=== PATIENT | female | born 1990 | race Caucasian/White ===

== ENCOUNTER 2016-07-18 21:38 | Inpatient (IN) | payer MEDICAID ==
[~2016-07-18] VITALS: Ht 170.2 cm; Wt 107.9 kg
--- NOTE | ~2016-07-18 | ER ---
PATIENT'S NAME: GEOFF WARREN [facility] AGE: 25 Y [address] ROOM: [place] [address] LOCATION: GPCU ADMIT DATE: 07/18/2016 ER/Outpatient Report DISCHARGE DATE: FAMILY PHYSICIAN: Dhruv Shields MD ATTENDING PHYSICIAN: Dhruv Shields HISTORY OF PRESENT ILLNESS: Zunilda Warren is a 25-year-old female who was initially seen by FELIPA Rowe and I shortly thereafter assumed care. Please refer to Chaparro's dictation for history and initial physical exam findings. I did confirm the history with the patient. She started out with a sore throat yesterday and then today was ill with a temp of 104. She has a history of asthma and she has been more short of breath today and very diaphoretic. She used her albuterol nebulizer at home with no relief. She is brought in by ambulance from [place] with mutual aid with [facility]. She has been given a DuoNeb treatment en route. On arrival here, she is acutely short of breath, tachypneic, wheezes, diminished breath sounds, and was given [id number] albuterol treatments. The patient is extremely diaphoretic and answering history questions in only 1 or 2 word sentences. ALLERGIES: PENICILLIN AND IBUPROFEN. CURRENT MEDICATIONS: 1. Vicodin. 2. Ventolin. 3. Tylenol. 4. Pulmicort. MEDICAL PROBLEMS: Asthma, she has been hospitalized for her asthma before, but never intubated, and back pain. PRIOR SURGERIES: section, she is a G1, P1, her child is almost 1-year-old. SOCIAL HISTORY: The patient lives in [place]. Tobacco use, denies. Alcohol use, occasional. Drug use, denies. FAMILY HISTORY: No pertinent family history. REVIEW OF SYSTEMS: All systems reviewed and negative other than what is noted in the HPI. Her PATIENT'S NAME: GEOFF WARREN [facility] AGE: 25 Y [address] ROOM: [place] [address] LOCATION: GPCU ADMIT DATE: 07/18/2016 ER/Outpatient Report DISCHARGE DATE: FAMILY PHYSICIAN: Drhuv Shields MD ATTENDING PHYSICIAN: Shields,Dhruv A last menstrual period was 2 days ago. PHYSICAL EXAMINATION: VITAL SIGNS: Weight 105.3 kg. Blood pressure 109/64, pulse 148, respirations 35, temp 99.8, sats 88% on 6 L per nasal cannula. She is receiving her 2nd albuterol treatment and she has already had 1 DuoNeb treatment and 125 mg Solu- Medrol when I am seeing the patient. GENERAL: A 25-year-old, acutely ill, and very diaphoretic female in obvious respiratory distress. HEENT: Head: Normocephalic, atraumatic. Ears: TMs translucent both ears. Eyes: Pupils equal and reactive to light and accommodation. Extraocular movements intact. Nose: Mucosa pink. No lesions. Mouth: Initially was not visualized as she was receiving breathing treatments [id number] later oropharynx diffusely erythematous with tonsillar hypertrophy. NECK: Supple. No lymphadenopathy. No nuchal rigidity. LUNGS: Diminished breath sounds throughout with scattered wheezes. The patient is tachypneic. HEART: Sinus tachycardia. No murmur, rub, or gallop. ABDOMEN: Bowel sounds present. Soft, nondistended, nontender. SKIN: Very diaphoretic. No rashes. NEURO: The patient is alert and oriented x4. Cranial nerves 2 through 12 grossly intact. Motor strength 5/5 throughout. Sensation is intact to light touch. No lower extremity edema. No calf tenderness. LABORATORY DATA: One-view chest x-ray, possible bibasilar infiltrate, pending Radiology over- read. ABGs pH 7.40, pCO2 38, pO2 78, sats 95%, and this was while she was receiving her 3rd albuterol treatment. D-dimer 0.57. Hemoglobin 15.2, hematocrit 46.6, platelets 264, white count 21.8 with 73% neutrophils. Influenza A and B negative. Procalcitonin less than 0.05. Strep screen is positive. HCG less than 1. Lactate 0.6. Sodium 139, potassium 3.7, chloride 106, CO2 22, BUN 11, creatinine 1.0, blood sugar 134. Liver enzymes normal. IMPRESSION: 1. Acute asthma exacerbation with hypoxia and respiratory distress. Plan: The patient was given 4 albuterol treatments in the ER, a DuoNeb prehospital, 125 mg of IV Solu-Medrol here in the emergency room, and her symptoms were improving slightly. She was less tachypneic, breathing easier, and her lungs had improved with occasional scattered wheezes. She still remained diaphoretic. 2. Possible bibasilar pneumonia. Zithromax 500 mg daily. 3. Strep pharyngitis. Zithromax IV as ordered per Dr. Shields. The patient arrived at 2135 hours, went to the floor at 2359 hours, and 40 minutes of critical care was provided with this patient. PATIENT'S NAME: GEOFF WARREN [facility] AGE: 25 Y [address] ROOM: [place] [address] [facility] AD[facility] DATE: 07/18/2016 ER/Outpatient Report DISCHARGE DATE: FAMILY PHYSICIAN: Dhruv Shields MD ATTENDING PHYSICIAN: Dhruv Shields RAFI CAMARILLO MD CAR/modl /[id number] d: 07/19/16 0405 t: 07/19/16 0432, OUTPATIENT REPORT
--- NOTE | ~2016-07-18 | ER ---
[facility] AGE: 25 Y [address] ROOM: [address] [place], [place] [address] LOCATION: GPCU ADMIT DATE: 07/18/2016 ER/Outpatient Report DISCHARGE DATE: FAMILY PHYSICIAN: Dhruv Shields MD ATTENDING PHYSICIAN: Dhruv Shields Time of Patient's Arrival: 2138 hours. Time of Patient's Evaluation: 2140 hours. CHIEF COMPLAINT: Shortness of breath. HISTORY OF PRESENT ILLNESS: This is a 25-year-old female who presents to the ER via [facility] and who was mutuated by our EMS crew, who developed severe shortness of breath today. The patient states she was feeling fine yesterday and then today she felt like she was having exacerbation of her asthma. She did use albuterol and her Pulmicort today and states that she also spiked a fever up to 104 degrees at home. She did take Tylenol for that. She states that she maybe had a little bit of a sore throat. She has a productive cough of clear phlegm, but now it is tight and dry. She states that she has not been around anybody else who has been ill. She states she has been hospitalized for her asthma before, but it has never been this bad. She has never spiked a fever with it. ALLERGIES: PENICILLIN AND IBUPROFEN. MEDICATIONS: Please see medication list in nurse's notes. PAST MEDICAL HISTORY: Back pain and asthma. PAST SURGERIES: . Last menstrual period was 2 days ago. SOCIAL HISTORY: She drinks alcohol occasionally. Denies any smoking use. REVIEW OF SYSTEMS: A 10-point review of systems was completed and was negative with the exception of those discussed in the HPI. [facility] AGE: 25 Y [address] ROOM: [id number] [place], [place] [address] LOCATION: GPCU ADMIT DATE: 07/18/2016 ER/Outpatient Report DISCHARGE DATE: FAMILY PHYSICIAN: Dhruv Shields MD ATTENDING PHYSICIAN: Dhruv Shields PHYSICAL EXAMINATION: VITAL SIGNS: Weight 105.3 kg taken, blood pressure is 109/64, pulse 148, respirations 35, temperature 99.8 degrees tympanically, and saturation is 88% on 6 L nasal cannula. GENERAL: Alert 25-year-old, who is in moderate distress from her breathing. She is diaphoretic as well. HEENT: Head: Normocephalic. Ears: TMs display good light reflexes bilaterally. Auditory canals clear. She does display moist mucous membranes. Eyes: Pupils are equal, active to light. NECK: Supple. No lymphadenopathy. LUNGS: She has tight wheezing throughout. She does have some retractions. HEART: Tachycardic, normal rhythm. ABDOMEN: Soft, nontender. She has good bowel sounds throughout. No masses are palpated. EXTREMITIES: No clubbing or cyanosis. No pedal edema noted. Extremities, she has full range of motion of all limbs. SKIN: She is diaphoretic, no lesions noted. Labs and x-rays are all being pending. I will be trading the care over to Dr. Lozano at this time due to shift change. The patient understands and agrees with care. DRU MITCHELL PA-C FOR MD PABLITO NANCE/pee /[id number] d: 07/19/16 0107 t: 07/26/16 1839, OUTPATIENT REPORT
--- NOTE | ~2016-07-18 | HP ---
PATIENT'S NAME: GEOFF MANE [facility] AGE: 25 Y [address] ROOM: [place] [address] LOCATION: GPCU ADMIT DATE: 07/18/2016 History & Physical DISCHARGE DATE: FAMILY PHYSICIAN: Elsy Shields MD ATTENDING PHYSICIAN: Elsy Sihelds DATE OF SERVICE: CHIEF COMPLAINT: Severe shortness of breath. HISTORY OF PRESENT ILLNESS: The patient is a 25-year-old female with a known history of asthma and allergic rhinitis, who presented to [facility] with respiratory distress. She was in her normal state of health until today, started developing a sore throat and then this evening started developing a fever up to 104 degrees. Within the next hour, she started having increased respiratory distress and ended up calling the unit to bring her in. She really has not been hospitalized for asthma over a year and has not ever been intubated. She was seen in the emergency room in April, ended up having some significant respiratory distress with O2 saturations in the 60% range, but she ended up seen with dramatic improvement with some neb treatments. She has had 3 treatments here and she is breathing much better. She is tachycardic upon arrival as well. Pulse rate of 140, her temperature 99.8. She was initially 80% to 90% on 6 L of oxygen per nasal cannula. She is now in the mid 90s on that same 6 L. PAST MEDICAL HISTORY: Significant for allergic rhinitis and history of asthma. ALLERGIES: PENICILLIN CAUSES UNKNOWN REACTION AND IBUPROFEN CAUSES DIFFICULTY BREATHING. CURRENT MEDICATIONS: Albuterol p.r.n. PRIOR SURGERY: She has had 1 in the past. SOCIAL HISTORY: She is a nonsmoker. Drinks alcohol occasionally. She does have 1 child. FAMILY HISTORY: Unremarkable. PATIENT'S NAME: GEOFF MANE [facility] AGE: 25 Y [address] ROOM: [place] [address] LOCATION: GPCU ADMIT DATE: 07/18/2016 History & Physical DISCHARGE DATE: FAMILY PHYSICIAN: Elsy Shields MD ATTENDING PHYSICIAN: Elsy Shields REVIEW OF SYSTEMS: Otherwise, denies any chest pain or pressure. No melena, hematochezia, or bright red blood per rectum. No urinary symptoms. All other review of systems are negative. PHYSICAL EXAMINATION: VITAL SIGNS: Weight 105.3 kg. Pulse 148, respirations 35, temperature 99.8, O2 saturation 88% on 6 L of oxygen initially and now again it is 95% on 6 L, and blood pressure 109/64. GENERAL: The patient is a nontoxic-appearing, 25-year-old, who is in mild-to- moderate respiratory distress, otherwise doing well. HEENT: Head: Normocephalic, atraumatic. Ears, TMs are clear and intact bilaterally. Nose is patent. Throat: Tonsils are 3+ and markedly erythematous with exudate present. NECK: Supple with shotty lymphadenopathy bilaterally. HEART: Tachycardic without audible murmur. LUNGS: Diffuse wheezing throughout, but much better air movement apparently now than what she had when she first came in. ABDOMEN: Soft, nontender, nondistended. Bowel sounds are positive. There is no hepatosplenomegaly. No guarding or rebound. EXTREMITIES: No clubbing, cyanosis, or edema. NEURO: No focal deficits. LABORATORY DATA: ABG shows pH is 7.40, pCO2 of 38, pO2 of 78, bicarb 23.5, CO2 content 25, percent saturation 95%. D-dimer is normal at 0.57. White cell count is 21,800, but it should be noted this is drawn after IV steroids were administered. She has 73% neutrophils, 17% lymphocytes, 7% monocytes. Hemoglobin 15.2, hematocrit 46.6. Influenza A and B are both negative. Lactate is 0.6. Chest x- ray does not show an acute infiltrate. ASSESSMENT: A 25-year-old female with following problems: 1. Acute hypoxic respiratory failure. 2. Severe acute asthma exacerbation. 3. History of allergic rhinitis. 4. Obesity. 5. Significant pharyngitis with strep currently pending. PLAN: We would certainly need to admit her for IV steroids, breathing treatments, and IV antibiotics. She has significant pharyngitis as well. We will go ahead and put her on which will cover lungs as well as avoid her penicillin allergies and cover strep in case that is the case as well. If she would worsen, obviously we need to get Pulmonary involved. She does not need to be PATIENT'S NAME: GEOFF MANE [facility] AGE: 25 Y [address] ROOM: [place] [address] [facility] AD[facility] DATE: 07/18/2016 History & Physical DISCHARGE DATE: FAMILY PHYSICIAN: Elsy Shields MD ATTENDING PHYSICIAN: Elsy Shields on a ventilator at this point. We will continue with the above and see how she does. She voiced understanding of that plan. ELSY SHIELDS MD TAB/modl /[id number] D: [id number] T: [id number] HISTORY & PHYSICAL
--- NOTE | ~2016-07-18 | DS ---
PATIENT'S NAME: GEOFF MANE [facility] AGE: 25 Y [address] ROOM: [address] [place], [place] [address] LOCATION: GPCU ADMIT DATE: 07/18/2016 Discharge Summary DISCHARGE DATE: 07/21/2016 FAMILY PHYSICIAN: Elsy Shields MD ATTENDING PHYSICIAN: Elsy Shields DISCHARGE DIAGNOSES: 1. Acute exacerbation of asthma. 2. Acute respiratory failure because of hypoxia. 3. Streptococcal pharyngitis. REASON FOR ADMISSION: This 25-year-old female with a history of asthma and allergies, presented to the emergency room with severe respiratory distress. She was in her normal state of health, until she started developing a sore throat and then a fever of 104 degrees with increased respiratory distress. She was subsequently seen at [facility] ER and was found to be hypoxic when she initially presented there. She was 88% on 6 L of oxygen. Please see dictated H and P full details. HOSPITAL COURSE: The patient is initially admitted, placed in IV steroids which she got her first dose in the ER. She did have a markedly erythematous pharynx and so was tested positive for strep, so she was placed on IV azithromycin. She was placed on breathing treatments as well and subsequently improved really pretty quickly. She has got 2 L the next morning and was on room air. Following that, however, she did get a little hypoxic on the evening of the , the and did well without needing any more oxygen. Even on , she was saturating well and deemed ready for discharge. DISCHARGE INSTRUCTIONS: She will follow up with me in one week, sooner for any further problems or concerns. She was placed on following medications: 1. Singulair 10 mg one a day. 2. Albuterol HFA two puffs every 4 to 6 hours p.r.n. 3. Symbicort 160/4.5, two puffs b.i.d. 4. Zithromax 250 mg one p.o. daily for 3 days. She is advised to take an antihistamine at this time of the year as well allergies. She will call or return sooner, if she has further problems or concerns. ELYS SHIELDS MD TAB/modl PATIENT'S NAME: GEOFF MANE [facility] AGE: 25 Y [address] ROOM: [place] [address] [facility] AD[facility] DATE: 07/18/2016 Discharge Summary DISCHARGE DATE: 07/21/2016 FAMILY PHYSICIAN: Elsy Shields MD ATTENDING PHYSICIAN: Elsy Shields /[id number] d: 07/21/1635 t: 07/29/16 1642, DISCHARGE SUMMARY
[~2016-07-18 21:38] MED LIST changes: -PROVENTIL OR V6.7 GM INH; -SINGULAIR10 MG PO; -ZITHROMAX250 MG PO
[2016-07-18 22:19] LABS: BASOPHIL # 0.1 K/uL (0.0-0.2); BASOPHIL % 0.3 %; EOSINOPHIL # 0.3 K/uL (0.0-0.5); EOSINOPHIL % 1.5 %; HEMATOCRIT 46.6 % (33.0-46.0); HEMOGLOBIN 15.2 g/dL (11.0-15.0); IMMATURE GRANULOCYTE # 0.1 K/uL (0.0-0.3); IMMATURE GRANULOCYTE % 0.5 %; LYMPHOCYTE # 3.7 K/uL (0.8-4.0); LYMPHOCYTE % 17.2 %; MCH 27.1 pg (27.0-34.0); MCHC 32.6 gm/dL (32.0-36.5); MCV 83.1 fl (83.0-98.0); MONOCYTE # 1.6 K/uL (0.0-1.0); MONOCYTE % 7.3 %; MPV 9.9 fl (9.4-12.4); NEUTROPHIL # (ANC) 15.9 K/uL (1.8-7.8); NEUTROPHIL % 73.2 %; NRBC % 0 /100WBC (0-0.00); RBC 5.61 M/uL (3.50-5.00); RDW-CV 13.2 % (11.9-14.6)
[2016-07-18 22:21] LABS: PLATELET COUNT 264 K/uL (150-450); WBC 21.8 K/uL (4.0-11.0)
[2016-07-18 22:30] LABS: BICARBONATE 23.5 mmol/L (18.0-23.0); PCO2 38 mmHg (35-45); PO2 78 mmHg (80-90)
[2016-07-18 22:34] LABS: ALBUMIN 3.5 gm/dL (3.5-5.0); ALK PHOS 130 IU/L (33-138); ALT 67 IU/L (12-78); ANION GAP 14.7 (10.0-19.0); AST 21 IU/L (10-40); BLOOD UREA NITROGEN 11 mg/dL (6-24); CALCIUM 8.6 mg/dL (8.5-10.5); CHLORIDE 106 mMol/L (96-110); CO2 22 mMol/L (22-32); ESTIMATED GFR (MDRD EQUATION) > 60; POTASSIUM 3.7 mMol/L (3.7-5.1); SODIUM 139 mMol/L (135-145); TOTAL BILIRUBIN 0.6 mg/dL (0.0-1.5); TOTAL PROTEIN 7.4 g/dL (6.0-8.4)
[2016-07-19] MEDS ORDERED: PROVENTIL OR V6.7 GM INH (00:17)
--- NOTE | 2016-07-19 07:21 | NUR ---
Significant Event: Patient has been alert/oriented x3. All vital signs have improved. HR's now 70-80's, SBP's 110's, O2 sats upper 90's on 2L. NS infusing at 125 mL/hr x2 liters. Patient denies any pain, except for throat discomfort related to strep throat. Follow up: Continue to monitor per plan of care.
--- NOTE | 2016-07-19 07:22 | NUR ---
Patient admitted to PCU from ED at 0005 for asthma exacerbation and strep throat. Patient had been up to 6L O2 in ED and given breathing treatments. Titrated to 4L when she got to the floor. Patient doesn't have much of a significant medical history. IV Azithromycin for strep throat.
--- NOTE | 2016-07-19 17:44 | NUR ---
PATIENT HAS BEEN IN BED WATHCING TV ALL DAY. SHE GETS UP PERIODICALLY FOR THE BATHROOM. PATIENT TOOK A SHOWER THIS MORNING. PATIENT WAS ON THREE LITERS O2, AND WE DECREASED HER O2 DOWN TO ONE LITER AT 0830. WE TOOK THE O2 OFF AT 1445 AND PATIENT WAS ON ROOM AIR THE REST OF THE DAY. PATIENT REFUSED BREAKFAST AND STATED SHE WAS NOT HUNGRY. PATIENT'S BROTHER BROUGHT HER LUNCH IN THE AFTERNOON. PATIENT VOIDED ONE TIME TODAY. PATIENT IS CURRENTLY RESTING IN BED.
--- NOTE | 2016-07-20 04:16 | NUR ---
Significant Event: Patient A/Ox3. VSS on RA-2L. Patient is up ad-dawn in room. No complaints of pain, but patient did begin to feel some tightness in her chest around 0300 this morning, so RT started oxygen. Solumedrol given at 2100 and 0415. IV antibiotics at 2100 also. Follow up: Home today...?
--- NOTE | 2016-07-20 11:33 | NUR ---
Introduced self and CM role to Dontae. She tells me that she lives in [place], [place] but is in the process of moving to [place]. Dontae tells me that she has a child that lives at home with her but is currently being taken care of by family while she is in the facility. I did see that she was listed as self pay on our sheet. Dontae did confirm that she does not have healthcare and she has filled out the financial assistance application. She did give me the completed form, which I gave to the [facility] office. Dontae tells me that she does have issues at times filling her meds, but gets samples from her PCP, Dr. Shields, or asks her family for money if she needs it. "I ask my family for help as much as I can, or I get stuff from Dr. Shields. I think I am going to try to apply for Medicaid since I have a kid at home, so I think I will qualify for it. I don't know how to go about doing that though." I let her know that we did have a person in house that I could see about coming to visit with her before she leaves to explain things to her as well as answer any questions she might have. Dontae was fine with this. She denied any other questions, needs or concerns. Plan is home when medically cleared by MD to do so. Her main barrier right now is her O2 at night needs. CM to continue to follow and assist. I did talk with Adrianna with [facility] in the [facility] office, update her to the above, and ask that she see Dontae before she is dismissed in the next 24 hours or less. Adrianna states she will try to get up and meet with her. Plan home.
--- NOTE | 2016-07-20 17:37 | NUR ---
PATIENT REFUSED BREAKFAST BUT ATE LUNCH. PATIENT VOIDED TWO TIMES TODAY AND HAD NO BM. PATIENT RECEIVED SOLUMEDROL IV PUSH TODAY. PATIENT GOES TO THE BATHROOM ADLIB. SHE WAS UP TO THE CHAIR FOR AWHILE THIS AFTERNOON AND HAS BEEN RESTING IN BED ALL DAY WATCHING TV.
--- NOTE | 2016-07-21 05:08 | NUR ---
Significant Event: PATIENT IS A/O X3. VSS. HR 80-100'S. SBP 100-120'S. AFEBRILE. 02 SATS IN LOW TO MID 90'S ON RA. NO C/O PAIN. LUNGS CLEAR/DIM THROUGHOUT. NO ASTHMATIC EPISODES THIS SHIFT. UP AD ROMERO IN ROOM. BOWELS ACTIVE. RIGHT WRIST IV SL. ON INTERMITTENT IV ABX. Follow up: CONTINUE TO MONITOR PER PLAN OF CARE. HOME TODAY.
[2016-07-21] MEDS ORDERED: SINGULAIR10 MG PO (07:15)
[2016-07-21] MEDS ORDERED: SYMBICORT 16010.2 GM INH (07:17)
[2016-07-21] MEDS ORDERED: ZITHROMAX250 MG PO (07:18)
--- NOTE | 2016-07-21 11:19 | NUR ---
Patient dismissed to home. Denies question or concern of dismissal. VSS. Denies any SOB/wheeze/difficulty breathing. IV dc'd. F/u appt discussed along with new meds and new medication information provided to patient. RX sent with patient.
== END 2016-07-21 10:00 | disposition disaster alternative care site (69) | DRG 189 ==
LOC: GMED 21:38 → GPCU 23:19
PROVIDERS: Family Medicine; Physician Assistant Medical; ADMIT Family Medicine
DX: J96.01 Acute respiratory failure with hypoxia (principal); J45.901 Unspecified asthma with (acute) exacerbation; J02.0 Streptococcal pharyngitis; Z88.0 Allergy status to penicillin; E66.9 Obesity, unspecified; Z68.37 Body mass index [BMI] 37.0-37.9, adult
CPT/HCPCS: J0456; J2930; J7030; J7050

== ENCOUNTER → 2016-07-18 | Outpatient (CLI) | payer MEDICAID ==
[~2016-07-18] MED LIST: ALBUTEROL2.5 MG/0.5 INH; APNO TOP; LANSINOH7 GM TOP; PERCOCET 5-3251 EACH PO; PREDNISONE20 MG PO; PRENATAL 1+1)(P1 TAB PO; PROVENT1 EACH; PROVENTIL OR V6.7 GM INH; PROVENTIL2 MG; PROVENTIL2.5 MG/0.5 INH; SINGULAIR10 MG PO; SURFAK240 MG PO; SYMBICORT 16010.2 GM; SYMBICORT 16010.2 GM INH; SYMBICORT 80-10.2 GM INH; ZITHROMAX250 MG PO
== END | disposition disaster alternative care site (69) ==
LOC: GAMB 21:12
DX: J45.901 Unspecified asthma with (acute) exacerbation (principal); M54.9 Dorsalgia, unspecified; G89.29 Other chronic pain; R06.00 Dyspnea, unspecified; R61 Generalized hyperhidrosis